=== PATIENT | female | born 1960 | race Caucasian/White ===

== ENCOUNTER 2017-09-05 09:29 | Emergency (ER) | payer OTHER ==
[~2017-09-05] VITALS: Ht 170.2 cm; Wt 77.1 kg
[2017-09-05 11:17] LABS: ABSOLUTE BASOPHIL COUNT 0 /CUMM (0.0-0.2); ABSOLUTE EOSINOPHIL COUNT 0 /CUMM (0.0-0.7); ABSOLUTE GRANULOCYTE CT 8.7 /CUMM (1.4-6.5); ABSOLUTE LYMPH COUNT 0.8 /CUMM (1.2-3.4); ABSOLUTE MONOCYTE COUNT 0.4 /CUMM (0.10-0.60); BASOPHIL % 0.3 % (0.0-2.0); EOSINOPHIL % 0.4 % (0-5); HEMATOCRIT 43.5 % (37-47); MEAN CORPUSCULAR HGB CONC 34.3 G/DL (33.0-37.0); MEAN CORPUSCULAR VOLUME 93.3 FL (81.0-99.0); MEAN PLATELET VOLUME 8.9 FL (7.4-10.4); PLATELET COUNT 232 /CUMM (130-400); RBC DISTRIBUTION WIDTH 13.9 % (11.5-14.5); RED BLOOD CELL CT 4.66 /CUMM (4.20-5.40)
[2017-09-05] MEDS ORDERED: SYNTHROID75 MCG PO (11:21)
[2017-09-05] MEDS ORDERED: PROAIR HFA8.5 GM INH (11:21)
[2017-09-05] MEDS ORDERED: AMITRIPTYLINE H25 M2 PO (11:21)
[2017-09-05] MEDS ORDERED: BENICAR HCT 201 EACH PO (11:21)
[2017-09-05] MEDS ORDERED: SIMVASTATIN40 M1 PO (11:22)
[2017-09-05] MEDS ORDERED: CITALOPRAM HBR40 MG PO (11:22)
--- NOTE | 2017-09-05 11:59 | ED GENERAL ADULT ---
History of Present Illness General Chief Complaint: General Adult Stated Complaint: BIBA GEN WEAKNESS Source: patient, family Exam Limitations: no limitations Vital Signs & Intake/Output Vital Signs & Intake/Output Vital Signs Date Time Temp Pulse Resp B/P B/P Pulse O2 O2 Flow FiO2 Mean Ox Delivery Rate 09/05 1454 98.4 09/05 1415 98.4 74 18 151/88 95 Room Air 09/05 1200 98.2 86 18 145/63 98 Room Air 09/05 0936 98.0 92 18 156/87 98 Room Air Allergies Coded Allergies: lactose (Intermediate, GI UPSET 09/05/17) Penicillins (UNKNOWN 09/05/17) Reconcile Medications Albuterol Sulfate (Proair Hfa) 90 MCG HFA.AER.AD 2 PUF INH Q4-6 PRN PRN SHORTNESS OF BREATH (Reported) Amitriptyline HCl 25 MG TABLET 1 TAB PO QPM SLEEP (Reported) Citalopram Hydrobromide (Citalopram HBr) 40 MG TABLET 1 TAB PO DAILY DEPRESSION (Reported) Levothyroxine Sodium (Synthroid) 75 MCG TABLET 1 TAB PO DAILY AC THYROID ( Reported) Olmesartan/Hydrochlorothiazide (Benicar Hct 20-12.5 MG Tablet) 20 MG-12.5 MG TABLET 1 TAB PO DAILY HEART (Reported) Ondansetron (Zofran Odt) 4 MG TAB.RAPDIS 1 TAB SL TID Nausea and Vomiting Simvastatin (Simvastatin*) 40 MG TABLET 1 TAB PO QPM CHOLESTEROL (Reported) Triage Note: 57F BIBA AFTER CALLING WHILE DRIVING TO WORK FOR N/V/D SINCE 0600. PT HAS HX OF ANXIETY AND BEGAN HYPERVENTILATING ON SCENE, AND BEGAN REPORTING SYMPTOMS OF TINGLING PARASTHESIAS IN HANDS. HYPERTENSIVE AT THAT TIME 190'S/100 IN FIELD AND 156/87 UPON ARRIVAL TO ED. NO ACTIVE VOMITING OBSERVED. Triage Nurses Notes Reviewed? yes HPI: 57 yo F PMH HLD presenting with N/V/D, dizziness, neurologic Sx, palpitations. Nausea since this morning with 3-4 episodes of NBNB emesis, associated diarrhea with 2 loose watery bowel movements. While patient was driving to work, she developed dizziness, palpitations, anxiety, hyperventilation, parasthesias and cramping of bilateral hands/feet, self resolved. Denies associated fevers, chills, chest pain, abdominal pain, bloody stools, urinary Sx, headache, neck pain or focal neurologic Sx. Non-smoker, denies illicit drug use, EtOH use for the last 7 days ("we've been on vacation"), 4-5 drinks per night, last drink yesterday evening, denies Hx of withdrawal tremors or seizures. (Surendra Moon MD) Past History Travel History Traveled to [place] past 21 day No Medical History Any Pertinent Medical History? see below for history Surgical History Surgical History: none Family History Hx Contributory? No (Surendra Moon MD) Review of Systems Review of Systems Constitutional: Reports: see HPI. EENTM: Reports: no symptoms. Respiratory: Reports: see HPI. Cardiovascular: Reports: see HPI. GI: Reports: see HPI. Genitourinary: Reports: no symptoms. Musculoskeletal: Reports: no symptoms. Skin: Reports: no symptoms. Neurological/Psychological: Reports: see HPI. Hematologic/Endocrine: Reports: no symptoms. Immunologic/Allergic: Reports: no symptoms. All Other Systems: Reviewed and Negative (Surendra Moon MD) Physical Exam Physical Exam General Appearance: well developed/nourished, anxious Head: atraumatic Eyes: Bilateral: PERRL, EOMI. Ears, Nose, Throat: moist mucus membranes Neck: full range of motion, no midline tenderness Respiratory: normal breath sounds, lungs clear Cardiovascular: regular rate/rhythm, normal peripheral pulses Gastrointestinal: soft, non-tender Comments: General: Middle aged woman laying in hospital bed, temulous, appears anxious Abdomen: Soft and non-TTP throughout Neurologic: Tremors of bilateral upper and lower extremities, some tongue fasciculations, cranial nerves II-XII intact as tested, no motor or sensory deficits, no dysmetria, negative chovstek sign Core Measures ACS in differential dx? No CVA/TIA Diagnosis: No Sepsis Present: No Sepsis Focused Exam Completed? No (Surendra Moon MD) Progress Differential Diagnoses I considered the following diagnoses in my evaluation of the patient: [Panic attack, Electrolyte derrangement, EtOH withdrawal] Plan of Care: Orders Procedure Date/time Status Regular Diet 09/05 D Active LACTIC ACID 09/05 1443 Complete THYROID STIMULATING HORMONE 09/05 1041 Complete TROPONIN LEVEL 09/05 1041 Complete PHOSPHORUS 09/05 1041 Complete MAGNESIUM 09/05 1041 Complete LIPASE 09/05 1041 Complete LACTIC ACID 09/05 104 Complete HEPATIC FUNCTION PANEL 09/05 104 Complete CBC WITHOUT DIFFERENTIAL 09/05 1040 Complete BASIC METABOLIC PANEL 09/05 104 Complete EKG 09/05 104 Active Laboratory Tests 09/05/17 1446: Lactic Acid 0.9 09/05/17 1102: Anion Gap 14, Estimated GFR > 60, BUN/Creatinine Ratio 28.8 H, Glucose 127 H, Lactic Acid 2.2 H, Calcium 10.8 H, Phosphorus 2.3 L, Magnesium 1.7, Total Bilirubin 0.8, Direct Bilirubin 0, AST 49 H, ALT 65 H, Alkaline Phosphatase 71 , Troponin I < 0.01, Total Protein 8.2, Albumin 4.9, Lipase 165, TSH 1.710, CBC w Diff MAN DIFF ORDERED, RBC 4.66, MCV 93.3, MCH 32.0 H, MCHC 34.3, RDW 13.9, MPV 8.9, Gran % 87.0 H, Lymphocytes % 7.8 L, Monocytes % 4.5, Eosinophils % 0.4, Basophils % 0.3, Absolute Granulocytes 8.7 H, Absolute Lymphocytes 0.8 L, Absolute Monocytes 0.4, Absolute Eosinophils 0, Absolute Basophils 0, Platelet Estimate ADEQUATE, Anisocytosis 1+ Physician MDM: 57 yo F PMH HLD presenting with N/V/D, dizziness, neurologic Sx, palpitations. HR 90s, BP stable, remainder of exam as above. DDx: Gastroenteritis, Panic Disorder, Electrolyte derrangement, EtOH withdrawal, less likely ACS, low concern for PE or aortic pathology. ECG sinus rhythm, non- ischemic. Troponin negative. Labs remarkable for mild Ca elevation, mild lactate elevation, hypophosphatemia (repleted PO), Mild LFT elevations. Given valium, 2L NS with improvement in tremors and subjective Sx per patient, Sx likely 2/2 anxiety, less likely EtOH withdrawal given drinking history as stated by patient. On re-examination patient resting comfortably, repeat lactate normalized. I discussed the diagnostic possiblities with the patient including aniety vs. EtOH withdrawal, the patient will return to the ED for recurrent tremors or other signs of withdrawal. Discharged with zofran Rx, plan for close f/u with PMD. Initial ED EKG: NSR (Coffey MD,Surendra) Departure Departure Disposition: HOME OR SELF CARE Condition: Stable Clinical Impression Primary Impression: Palpitations Secondary Impressions: Nausea and vomiting, Paresthesia of hand, bilateral Referrals: Lashell VENTURA,Malika (PCP/Family) Additional Instructions: Take zofran as needed for nausea. Drink plenty of fluids. Follow up with your primary care physician in the next 2-3 days. Return to the ED for any new, worsening, or concerning symptoms. Departure Forms: Customer Survey General Discharge Information Prescriptions: Current Visit Scripts Ondansetron (Zofran Odt) 1 TAB SL TID #20 TAB (Surendra Moon MD) PA/OTR FLATBED DRIVER Co-Sign Statement Statement: ED Attending supervision documentation- [] I saw and evaluated the patient. I have also reviewed all the pertinent lab results and diagnostic results. I agree with the findings and the plan of care as documented in the PA's/OTR FLATBED DRIVER's documentation. [x] I have reviewed the ED Record and agree with the PA's/OTR FLATBED DRIVER's documentation. [] Additions or exceptions (if any) to the PAs/OTR FLATBED DRIVER's note and plan are summarized below: [] (Richard Monson DO) Critical Care Note Critical Care Note Critical Care Time: non-applicable (Surendra Moon MD)
[2017-09-05 14:15] VITALS: BP 151/88
[2017-09-05] MEDS ORDERED: ZOFRAN ODT4 M1 SL (15:21)
== END 2017-09-05 15:25 ==
LOC: ERH 09:29
PROVIDERS: Student in an Organized Health Care Education/Training Program
DX: R00.2 Palpitations (principal); R11.2 Nausea with vomiting, unspecified; R20.2 Paresthesia of skin; R42 Dizziness and giddiness
CPT/HCPCS: 93005; 93010; 96361; 96374; J2405; J3360